=== PATIENT | female | born 1995 | race Caucasian/White ===

== ENCOUNTER 2018-05-07 20:02 | Emergency (ER) | payer OTHER ==
[~2018-05-07] VITALS: Ht 157.5 cm; Wt 59.0 kg
== END 2018-05-07 22:28 | disposition home or self-care (01) ==
LOC: ER 20:02
DX: O26.892 Other specified pregnancy related conditions, second trimester (principal); S30.0XXA Contusion of lower back and pelvis, initial encounter; W18.39XA Other fall on same level, initial encounter; Y93.89 Activity, other specified; Y92.832 Beach as the place of occurrence of the external cause; Y99.8 Other external cause status; Z34.02 Encounter for supervision of normal first pregnancy, second trimester

== ENCOUNTER 2018-07-17 09:16 | Emergency (ER) | payer OTHER ==
[~2018-07-17] VITALS: Ht 157.5 cm; Wt 65.8 kg
== END 2018-07-17 12:02 | disposition home or self-care (01) ==
LOC: ER 09:16
DX: R04.0 Epistaxis (principal)

== ENCOUNTER 2018-09-29 09:30 | Inpatient (IN) | payer OTHER ==
[~2018-09-29] VITALS: Ht 157.5 cm; Wt 68.0 kg
[2018-10-09] MEDS ORDERED: PRENATAL TABLE1 EAC1 PO (05:53)
== END 2018-10-11 14:43 | DRG 798 ==
LOC: OB/GYN 10-09 05:13 → LDR 10-09 05:13 → OB/GYN 10-09 18:43
PROC: 10E0XZZ Delivery of Products of Conception, External Approach (ICD-10-PCS; principal; 2018-10-09)
PROC: 10907ZC Drainage of Amniotic Fluid, Therapeutic from Products of Conception, Via Natural or Artificial Opening (ICD-10-PCS; 2018-10-09)
PROC: 3E0P7VZ Introduction of Hormone into Female Reproductive, Via Natural or Artificial Opening (ICD-10-PCS; 2018-10-09)
PROC: 4A1HXCZ Monitoring of Products of Conception, Cardiac Rate, External Approach (ICD-10-PCS; 2018-10-09)
PROC: 0UL70ZZ Occlusion of Bilateral Fallopian Tubes, Open Approach (ICD-10-PCS; 2018-10-10)
DX: O80 Encounter for full-term uncomplicated delivery (principal); Z37.0 Single live birth; Z3A.39 39 weeks gestation of pregnancy; Z30.2 Encounter for sterilization; Z22.330 Carrier of Group B streptococcus